=== PATIENT | female | born 1935 | race Two or more races ===

== ENCOUNTER 2018-04-06 10:32 | Outpatient (CLI) | payer OTHER | END 2018-04-06 15:00 | disposition home or self-care (01) | LOC: LAB 10:32 | DX: E11.65 Type 2 diabetes mellitus with hyperglycemia (principal); E03.8 Other specified hypothyroidism; N39.0 Urinary tract infection, site not specified; D68.8 Other specified coagulation defects; E78.2 Mixed hyperlipidemia; B96.89 Other specified bacterial agents as the cause of diseases classified elsewhere ==

== ENCOUNTER 2018-07-05 10:21 | Outpatient (CLI) | payer OTHER | END 2018-07-05 10:27 | disposition home or self-care (01) | LOC: RAD 10:21 | DX: M71.22 Synovial cyst of popliteal space [Baker], left knee (principal); J45.998 Other asthma ==

== ENCOUNTER → 2020-01-03 10:05 | Outpatient (CLI) | payer OTHER | END | disposition home or self-care (01) | LOC: LAB 10:05 | PROVIDERS: ATTEND Specialist | DX: N39.0 Urinary tract infection, site not specified (principal); E21.1 Secondary hyperparathyroidism, not elsewhere classified; E03.8 Other specified hypothyroidism ==

== ENCOUNTER 2020-07-15 14:00 | Outpatient (CLI) | payer OTHER | END 2020-07-16 07:15 | disposition home or self-care (01) | LOC: NUCLEAR 14:00 | PROVIDERS: ATTEND Specialist | DX: M81.0 Age-related osteoporosis without current pathological fracture (principal) ==

== ENCOUNTER 2021-03-18 08:56 | Outpatient (CLI) | payer OTHER | END 2021-03-18 08:58 | disposition home or self-care (01) | LOC: RAD 08:56 | PROVIDERS: ATTEND Specialist | DX: J45.998 Other asthma (principal) ==

== ENCOUNTER → 2021-03-19 08:49 | Outpatient (CLI) | payer OTHER | END | disposition home or self-care (01) | LOC: LAB 08:49 | PROVIDERS: ATTEND Specialist | DX: E03.9 Hypothyroidism, unspecified (principal); E11.21 Type 2 diabetes mellitus with diabetic nephropathy; E78.2 Mixed hyperlipidemia; E11.65 Type 2 diabetes mellitus with hyperglycemia; Z12.11 Encounter for screening for malignant neoplasm of colon; D64.9 Anemia, unspecified; J45.998 Other asthma; K75.81 Nonalcoholic steatohepatitis (NASH) ==

== ENCOUNTER 2022-01-07 14:29 | Outpatient (CLI) | payer OTHER | END 2022-01-07 14:30 | disposition home or self-care (01) | LOC: LAB 14:29 | PROVIDERS: ATTEND Orthopaedic Surgery | DX: E56.1 Deficiency of vitamin K (principal) ==

== ENCOUNTER 2023-12-04 23:51 | Emergency (ER) | payer OTHER ==
[~2023-12-04] VITALS: Ht 160 cm; Wt 49.9 kg
[2023-12-04] MEDS ORDERED: LEVOTHYROXINE25 MCG (23:57)
[2023-12-04] MEDS ORDERED: ATACAND4 MG (23:58)
[2023-12-05 01:08] LABS: HEMATOCRIT 35.5 % (36.0-45.00); HEMOGLOBIN 11.7 g/dL (12.0-15.00); MEAN CELL VOLUME 88.3 fL (80.00-100.00); MEAN CORPUSCULAR HEMOGLOBIN 29.1 pg (27.00-32.0); PLATELET COUNT 285 K/uL (150-450); RED BLOOD COUNT 4.02 M/uL (4.00-6.00); RED CELL DISTRIBUTION WIDTH 14.3 % (11.5-14.5)
[2023-12-05 01:24] LABS: URINE APPEARANCE Clear; URINE BILIRRUBIN Negative (NEGATIVE); URINE BLOOD Trace; URINE COLOR Yellow; URINE GLUCOSE Negative (NEGATIVE); URINE KETONE 15 (NEGATIVE); URINE LEUKOCYTE Small; URINE NITRATE Negative; URINE PROTEIN Negative (NEGATIVE); URINE UROBILINOGEN 0.2 E.U./dl
[2023-12-05 01:28] LABS: URINE BACTERIA 8644.4 uL (0.0-1933); URINE EPITHELIAL CELLS 10.9 uL (0.0-38.8); URINE RBC 6.1 uL (0.0-20.8); URINE WBC 49.2 uL (0.0-23.2)
[2023-12-05 01:49] LABS: URINE CAST 0.15 uL (0.0-1.40)
[2023-12-05 01:51] LABS: ALBUMIN 3.8 gm/dL (3.4-5.0); BILIRUBIN TOTAL 0.67 mg/dL (0.3-1.2); CALCIUM 10.2 mg/dL (8.5-10.1); CREATININE SERUM 0.9 mg/dL (0.55-1.02); GFR 59.09; GLOBULINA 3.8 G/DL (2.4-3.5); POTASSIUM 4.22 mEq/L (3.5-5.1); TOTAL PROTEIN 7.6 gm/dL (6.4-8.2)
[2023-12-05] MEDS ORDERED: FAMOTIDINE/PF 20 MG in 0.9 % SODIUM CHLORIDE 8 ML IV PUSH STA (04:42)
[2023-12-05] MEDS ORDERED: ONDANSETRON HCL 2 MG/ML VIAL IV ONE (04:45)
[2023-12-05] MEDS ORDERED: BACTRIM DS TAB1 EACH PO (06:03)
== END 2023-12-05 06:21 | disposition home or self-care (01) ==
LOC: ER 23:51
PROVIDERS: General Practice
DX: N39.0 Urinary tract infection, site not specified (principal); K59.00 Constipation, unspecified; I10 Essential (primary) hypertension; Z88.6 Allergy status to analgesic agent; Z88.0 Allergy status to penicillin; Z88.8 Allergy status to other drugs, medicaments and biological substances

== ENCOUNTER → 2023-12-22 09:54 | Outpatient (CLI) | payer OTHER ==
[~2023-12-22 09:54] MED LIST: ATACAND4 MG; BACTRIM DS TAB1 EACH PO; LEVOTHYROXINE25 MCG
[2023-12-22 11:09] LABS: HEMATOCRIT 35.4 % (36.0-45.00); MEAN CELL VOLUME 88.9 fL (80.00-100.00); MEAN CORPUSCULAR HEMOGLOBIN 30.2 pg (27.00-32.0); PLATELET COUNT 308 K/uL (150-450); RED BLOOD COUNT 3.98 M/uL (4.00-6.00); RED CELL DISTRIBUTION WIDTH 14.4 % (11.5-14.5)
[2023-12-22 11:15] LABS: PH,URINE 6.5 (5.0-8.0); URINE APPEARANCE Clear; URINE BILIRRUBIN Negative (NEGATIVE); URINE BLOOD Negative; URINE COLOR Yellow; URINE GLUCOSE Negative (NEGATIVE); URINE KETONE Negative (NEGATIVE); URINE LEUKOCYTE Moderate; URINE NITRATE Negative; URINE PROTEIN Negative (NEGATIVE); URINE UROBILINOGEN 0.2 E.U./dl
[2023-12-22 11:17] LABS: URINE BACTERIA 1097.4 uL (0.0-1933); URINE EPITHELIAL CELLS 20.5 uL (0.0-38.8)
[2023-12-22 11:51] LABS: ob NEGATIVE (NEGATIVE)
[2023-12-22 12:43] LABS: ALBUMIN 3.9 gm/dL (3.4-5.0); ALKALINE PHOSPHATASE 79 U/L (50-136); ALT/SGPT 18 U/L (12-78); ANION GAP 5 (10.0-20.0); AST/SGOT 19 U/L (15-37); BILIRUBIN TOTAL 0.55 mg/dL (0.3-1.2); BLOOD UREA NITROGEN 16 mg/dL (7-18); BUN CREA RATIO 23 (7.0-25.0); CALCIUM 9.9 mg/dL (8.5-10.1); CARBON DIOXIDE 32 mEq/L (21-32); CHLORIDE 110 mmol/L (98-107); CHOL HDL RATIO 4.5 (0-5.0); CHOLESTEROL 239 mg/dL (0-200); CREATININE SERUM 0.71 mg/dL (0.55-1.02); FREE TRIODOTIRONINE 2.25 pg/ml (2.18-3.98); GFR 77.69; GLOBULINA 3.3 G/DL (2.4-3.5); GLUCOSE FASTING 91 mg/dL (65-100); HDL 53 mg/dl (40-60); LDL 162 mg/dl (0-130); OSMOLALITY SERUM 286 MOSM/KG (275-295); POTASSIUM 4.48 mEq/L (3.5-5.1); SODIUM 143 mmol/L (136-145); T4 FREE 0.94 NG/ML (0.76-1.46); TOTAL PROTEIN 7.2 gm/dL (6.4-8.2); TRIGLYCERIDES 118 mg/dL (0-150); VLDL 23 (0-39)
[2023-12-22 13:18] LABS: C-REACTIVE PROTEIN < 0.29 MG/DL (0.00-0.29)
[2023-12-22 13:21] LABS: FOLIC ACID > 20.00 ng/ml (4.78-20)
== END | disposition home or self-care (01) ==
LOC: LAB 09:54
PROVIDERS: ATTEND Specialist
DX: E03.8 Other specified hypothyroidism (principal); N39.9 Disorder of urinary system, unspecified; D64.9 Anemia, unspecified; N25.81 Secondary hyperparathyroidism of renal origin; D64.89 Other specified anemias; E11.21 Type 2 diabetes mellitus with diabetic nephropathy; D51.3 Other dietary vitamin B12 deficiency anemia; Z13.220 Encounter for screening for lipoid disorders; E11.69 Type 2 diabetes mellitus with other specified complication; R19.5 Other fecal abnormalities; M00.80 Arthritis due to other bacteria, unspecified joint

== ENCOUNTER 2024-07-18 10:48 | Inpatient (IN) | payer OTHER ==
[~2024-07-18] VITALS: Ht 160 cm; Wt 49.9 kg
--- NOTE | 2024-07-18 11:18 | NUR ---
PTE ALERTA Y ORIENTADA X3 VERBALIZA QUE SE LE VIRO LA ANGELLA QUE TIENE LA LENGUA DORMIDA Y SIENTE UN ARDOR EN EL PECHO S REYNA VINICIO S/V Y SE LE REALIZA UN EKG Y SE UBICA.
--- NOTE | 2024-07-18 11:27 | NUR ---
PTE VERBALIZA QUE PADECE DE ANSIEDAD Y DEPRESION
--- NOTE | 2024-07-18 12:14 | NUR ---
PTE EVALUADA POR EL QUIEN ORDENA TRATAMIENTO LA CUAL SE EJECUTA. SE LE REALIZA CT SCAN DE LESA. SE MANTIENE BAJO OBSERVACION.
[2024-07-18 12:37] LABS: COVID-19 AG NEGATIVE (NEGATIVE)
[2024-07-18 12:44] LABS: INFLUENZA A AG NEGATIVE (NEGATIVE); INFLUENZA B AG NEGATIVE (NEGATIVE)
[2024-07-18 12:54] LABS: ALBUMIN 4.1 gm/dL (3.4-5.0); BASO % 0.5 % (0.1-1.2); BILIRUBIN TOTAL 0.45 mg/dL (0.3-1.2); CALCIUM 10.7 mg/dL (8.5-10.1); CREATININE SERUM 0.97 mg/dL (0.55-1.02); EOS # 0.31 (0.04-0.54); EOS % 2.8 % (0.7-7.0); GFR 54.07; GLOBULINA 4.1 G/DL (2.4-3.5); HEMATOCRIT 36.9 % (34.1-44.9); LYMPH # 2.83 (1.18-3.74); LYMPH % 25.3 % (19.3-53.1); MEAN CORPUSCULAR HEMOGLOBIN 29.5 pg (25.6-32.2); MONO # 0.76 (0.24-0.82); MONO % 6.8 % (4.7-12.5); NEUT # 7.18 (1.56-6.13); NEUT % 64.3 % (34.0-71.1); PLATELET COUNT 324 K/uL (163-369); POTASSIUM 4.18 mEq/L (3.5-5.1); RED BLOOD COUNT 4.07 M/uL (3.93-5.22); RED CELL DISTRIBUTION WIDTH 13.8 % (11.6-14.4); TOTAL PROTEIN 8.2 gm/dL (6.4-8.2)
[2024-07-18 12:55] LABS: INR 0.96; PARTIAL THROMBOPLASTIN TIME 24.8 SECONDS (22.0-34.0); PROTHROMBIN TIME 10.5 SECONDS (9.0-11.5)
[2024-07-18] MEDS ORDERED: ATORVASTATIN CALCIUM 40 MG TABLET PO SCH (19:42)
[2024-07-18] MEDS ORDERED: CLOPIDOGREL BISULFATE 75 MG TABLET PO SCH (19:42)
[2024-07-18] MEDS ORDERED: FAMOTIDINE/PF 20 MG in 0.9 % SODIUM CHLORIDE 8 ML IV PUSH SCH (19:42)
[2024-07-18] MEDS ORDERED: ACETAMINOPHEN 500 MG GEL..CAP PO PRN (19:45)
[2024-07-18] MEDS ORDERED: 0.9 % SODIUM CHLORIDE 1,000 ML IV SCH (19:45)
[2024-07-18] MEDS ORDERED: FAMOTIDINE/PF 20 MG/2 ML VIAL ONE (20:08)
[2024-07-18] MEDS ORDERED: CLOPIDOGREL BISULFATE 75 MG TABLET PO ONE (20:08)
[2024-07-18 21:47] LABS: URINE APPEARANCE Clear; URINE BILIRRUBIN Negative (NEGATIVE); URINE BLOOD Trace; URINE COLOR Yellow; URINE GLUCOSE Negative (NEGATIVE); URINE KETONE Negative (NEGATIVE); URINE LEUKOCYTE Large; URINE NITRATE Negative; URINE PROTEIN Negative (NEGATIVE); URINE UROBILINOGEN 0.2 E.U./dl
[2024-07-18 21:51] LABS: URINE BACTERIA 702.5 uL (0.0-1933); URINE EPITHELIAL CELLS 25.9 uL (0.0-38.8); URINE RBC 2.7 uL (0.0-20.8); URINE WBC 160.1 uL (0.0-23.2)
[2024-07-19] VITALS (7 sets, daily range): BP systolic 96–153; BP diastolic 53–82; O2SAT 90–100
[2024-07-19] MEDS ORDERED: LEVOTHYROXINE SODIUM 75 MCG TABLET PO SCH (06:00)
[2024-07-19] MEDS ORDERED: CANDESARTAN CILEXETIL 16 MG TABLET PO SCH (09:00)
[2024-07-19 11:26] LABS: CHOL HDL RATIO 4.8 (0-5.0); TSH 1.4 uIU/mL (0.358-3.74)
[2024-07-19] MEDS ORDERED: DEXTROSE 50 % IN WATER 0.5 G/ML VIAL IV PRN (17:30)
[2024-07-19] MEDS ORDERED: INSULIN LISPRO 1,000 UNIT/10 ML UNITS SUBCUTANEO PRN (17:30)
[2024-07-20 00:12] VITALS: O2SAT 97
[2024-07-20 01:05] VITALS: BP 109/63; O2SAT 99
[2024-07-20 05:20] VITALS: O2SAT 98
[2024-07-20 08:00] VITALS: BP 144/81; O2SAT 99
[2024-07-20 08:59] VITALS: O2SAT 98
[2024-07-20] MEDS ORDERED: SODIUM CHLORIDE 0.45 % 1,000 ML IV SCH (09:00)
[2024-07-20 16:00] VITALS: BP 123/57; O2SAT 98
== END 2024-07-20 19:44 | disposition home or self-care (01) | DRG 65 ==
LOC: ER 10:48 → SEC-K 19:56 → SURH 19:56 → MEDI 19:56 → SEC-K 20:32 → SURH 07-19 01:55
PROVIDERS: Emergency Medicine; General Practice; ADMIT Specialist; ATTEND Specialist
PROC: BW28ZZZ Computerized Tomography (CT Scan) of Head (ICD-10-PCS; 2024-07-18)
PROC: BW38ZZZ Magnetic Resonance Imaging (MRI) of Head (ICD-10-PCS; 2024-07-18)
PROC: B345ZZZ Ultrasonography of Bilateral Common Carotid Arteries (ICD-10-PCS; 2024-07-18)
PROC: B24BZZZ Ultrasonography of Heart with Aorta (ICD-10-PCS; 2024-07-18)
PROC: 4A12X4Z Monitoring of Cardiac Electrical Activity, External Approach (ICD-10-PCS; principal; 2024-07-19)
DX: I63.131 Cerebral infarction due to embolism of right carotid artery (principal); I69.354 Hemiplegia and hemiparesis following cerebral infarction affecting left non-dominant side; E78.5 Hyperlipidemia, unspecified; E03.9 Hypothyroidism, unspecified; E11.9 Type 2 diabetes mellitus without complications; Z79.4 Long term (current) use of insulin
CPT/HCPCS: 70551

== ENCOUNTER 2024-08-30 10:59 | Outpatient (CLI) | payer OTHER ==
[2024-08-30 12:01] LABS: CREATININE SERUM 0.89 mg/dL (0.55-1.02)
== END 2024-08-30 11:08 | disposition home or self-care (01) ==
LOC: LAB 10:59
PROVIDERS: ATTEND Radiology Diagnostic Radiology
DX: I63.10 Cerebral infarction due to embolism of unspecified precerebral artery (principal)

== ENCOUNTER 2024-09-04 08:52 | Outpatient (CLI) | payer OTHER | END 2024-09-04 08:59 | disposition home or self-care (01) | LOC: TOM 08:52 | PROVIDERS: ATTEND Internal Medicine | DX: I63.9 Cerebral infarction, unspecified (principal); I65.23 Occlusion and stenosis of bilateral carotid arteries | CPT/HCPCS: 70498; Q9965 ==

== ENCOUNTER → 2024-10-30 10:30 | Outpatient (CLI) | payer OTHER ==
[2024-10-30 11:13] LABS: BASO % 0.5 % (0.1-1.2); EOS # 0.24 (0.04-0.54); EOS % 3.0 % (0.7-7.0); LYMPH # 3.05 (1.18-3.74); LYMPH % 38.6 % (19.3-53.1); MEAN PLATELET VOLUME 10.20 fl (9.4-12.4); MONO # 0.46 (0.24-0.82); MONO % 5.8 % (4.7-12.5); NEUT # 4.10 (1.56-6.13); NEUT % 51.8 % (34.0-71.1); RED CELL DISTRIBUTION WIDTH 14.0 % (11.6-14.4)
[2024-10-30 11:30] LABS: CREATININE URINE RANDOM 147.0 MG/DL (30-125)
[2024-10-30 12:23] LABS: ALT/SGPT 18.0 U/L (12-78); AST/SGOT 18.0 U/L (15-37); BILIRUBIN TOTAL 0.53 mg/dL (0.3-1.2); BUN CREA RATIO 26.0 (7.0-25.0); CHOL HDL RATIO 2.7 (0-5.0); CREATININE SERUM 0.88 mg/dL (0.55-1.02); FREE TRIODOTIRONINE 2.09 pg/ml (2.18-3.98); GFR 60.5; GLOBULINA 3.2 G/DL (2.4-3.5); GLUCOSE FASTING 88.0 mg/dL (65-100); HDL 49.0 mg/dl (40-60); LDL 68.0 mg/dl (0-130); OSMOLALITY SERUM 288.0 MOSM/KG (275-295); T4 FREE 1.03 NG/ML (0.76-1.46); TSH 3.15 uIU/mL (0.358-3.74); VLDL 17.0 (0-39)
== END | disposition home or self-care (01) ==
LOC: LAB 10:30
PROVIDERS: ATTEND Specialist
DX: E03.9 Hypothyroidism, unspecified (principal); E11.21 Type 2 diabetes mellitus with diabetic nephropathy; E78.2 Mixed hyperlipidemia; E11.65 Type 2 diabetes mellitus with hyperglycemia; D64.9 Anemia, unspecified